=== PATIENT | male | born 1965 ===

== ENCOUNTER 2017-11-10 13:40 | Inpatient (IN) | payer MEDICAID ==
[2017-11-10 13:47] VITALS: O2SAT 99
[2017-11-10 14:54] LABS: BASO % 0.6 % (0.0-2.0); EOS # 0.1 K/uL (0.0-0.7); EOS % 1.4 % (0.0-4.0); HEMATOCRIT 47.2 % (35.0-51.0); LYMPH # 1.3 K/uL (1.0-4.3); LYMPH % 16.5 % (20.0-40.0); MEAN CELL VOLUME 87.4 fl (80.0-94.0); MEAN CORPUSCULAR HEMOGLOBIN 29.3 pg (27.0-31.0); MEAN CORPUSCULAR HGB CONC 33.5 g/dL (33.0-37.0); MEAN PLATELET VOLUME 8.3 fl (7.2-11.7); MONO # 0.4 K/uL (0.0-0.8); MONO % 5.3 % (0.0-10.0); NEUT # 5.8 K/uL (1.8-7.0); NEUT % 76.2 % (50.0-75.0); NRBC % 0.2 % (0.0-0.0); RED CELL DISTRIBUTION WIDTH 13.9 % (11.5-14.5); WHITE BLOOD COUNT 7.6 K/uL (4.8-10.8)
[2017-11-10 15:08] LABS: RBC URINE 12 /hpf (0-3); URINE BACTERIA FEW (<OCC); URINE BILIRUBIN NEGATIVE (NEGATIVE); URINE BLOOD SMALL (NEGATIVE); URINE COLOR YELLOW (YELLOW); URINE GLUCOSE (UA) NEG (Normal); URINE KETONE NEGATIVE (NEGATIVE); URINE LEUKOCYTE ESTERASE NEG Leu/uL (Negative); URINE PROTEIN NEGATIVE (NEGATIVE); URINE UROBILINOGEN 0.2-1.0 mg/dL (0.2-1.0); WBC URINE 1 /hpf (0-5)
[2017-11-10 15:12] LABS: ALB/GLOB RATIO 1.3 (1.0-2.1); ALCOHOL SERUM < 10 mg/dl (0-10); ALKALINE PHOSPHATASE 75 U/L (38-126); ALT/SGPT 44 U/L (21-72); AST/SGOT 34 U/L (17-59); BILIRUBIN,TOTAL 0.7 mg/dl (0.2-1.3); BLOOD UREA NITROGEN 9 mg/dl (9-20); CALCIUM 9.1 mg/dL (8.4-10.2); CARBON DIOXIDE 20 mmol/L (22-30); CHLORIDE 106 mmol/L (98-107); GFR AFRICAN-AMERICAN > 60; GLUCOSE,RANDOM 142 mg/dL (75-110); POTASSIUM 4.1 MMOL/L (3.6-5.0); SODIUM 138 mmol/l (132-148); TOTAL PROTEIN 7.7 G/DL (6.3-8.2)
--- NOTE | 2017-11-10 15:19 | CT ---
PROCEDURE: CT HEAD WITHOUT CONTRAST. HISTORY: Medical clearance COMPARISON: None available. TECHNIQUE: Axial computed tomography images were obtained through the head/brain without intravenous contrast. Radiation dose: Total exam DLP = 828.08 mGy-cm. This CT exam was performed using one or more of the following dose reduction techniques: Automated exposure control, adjustment of the mA and/or kV according to patient size, and/or use of iterative reconstruction technique. FINDINGS: HEMORRHAGE: No acute parenchymal, subarachnoid nor extra-axial hemorrhage. BRAIN: There may be some minimal chronic periventricular white matter ischemic changes. . . No obvious parenchymal nor extra-axial mass or collection identified on this noncontrast study. Mild generalized volume loss. VENTRICLES: Unremarkable. No hydrocephalus. CALVARIUM: Unremarkable. PARANASAL SINUSES: Unremarkable as visualized. No significant inflammatory changes. MASTOID AIR CELLS: Unremarkable as visualized. No inflammatory changes. OTHER FINDINGS: None. IMPRESSION: No acute intracranial hemorrhage.
--- NOTE | 2017-11-10 15:35 | ED PDOC ---
HPI: Psych/Substance Abuse Time Seen by Provider: 11/10/17 14:00 Chief Complaint (Nursing): Psychiatric Evaluation Chief Complaint (Provider): Psychiatric evaluation ED Caveat: Altered Mental Status History Per: Patient History/Exam Limitations: clinical condition Onset/Duration Of Symptoms: Days (x1) Current Symptoms Are (Timing): Still Present Suicide/Self Injury Attempted (Context): Cut Wrists Associated Symptoms: Suicidal Thoughts, Other (hearing voices) Additional Complaint(s): Blue Chatterjee is a 52 year old male, with no past medical history, who was brought to the emergency department by EMS after patient was found attempting to cut his wrists today. Patient reports hiding in his apartment for x2 months because people were going to kidnap and kill him. Patient admits to hearing voices and suicidal ideation. He denies homicidal ideation. No further medical complaints. PMD: None provided. Past Medical History Reviewed: Historical Data, Nursing Documentation, Vital Signs Vital Signs: Last Vital Signs Temp 98 F 11/10/17 13:45 Pulse 121 H 11/10/17 13:45 Resp 18 11/10/17 13:45 BP 150/104 H 11/10/17 13:45 Pulse Ox 99 11/10/17 13:45 - Medical History PMH: Comment Only: Chronic Kidney Disease (Denies) - Family History Family History: States: Unknown Family Hx - Social History Current smoker - smoking cessation education provided: No Alcohol: None (denies) Drugs: Denies - Allergies Allergies/Adverse Reactions: Allergies Allergy/AdvReac Type Severity Reaction Status Date / Time No Known Allergies Allergy Verified 11/10/17 13:44 Review of Systems ROS Statement: Except As Marked, All Systems Reviewed And Found Negative Psych: Positive for: Psychosis (hearing voices), Suicidal ideation. Negative for: Other (homicidal ideation) Physical Exam - Reviewed Nursing Documentation Reviewed: Yes Vital Signs Reviewed: Yes - Physical Exam Appears: Positive for: Non-toxic Head Exam: Positive for: ATRAUMATIC, NORMAL INSPECTION, NORMOCEPHALIC Skin: Positive for: Normal Color, Warm, Dry Eye Exam: Positive for: EOMI, Normal appearance, PERRL Neck: Positive for: Normal, Painless ROM, Supple Cardiovascular/Chest: Positive for: Regular Rate, Rhythm. Negative for: Murmur Respiratory: Positive for: Normal Breath Sounds. Negative for: Respiratory Distress Extremity: Positive for: Normal ROM. Negative for: Deformity, Swelling Neurologic/Psych: Positive for: Alert, Oriented (x0). Negative for: manager study II-XII (no focal deficits), Motor/Sensory Deficits - Laboratory Results Result Diagrams: 11/10/17 14:50 11/10/17 14:50 - ECG Interpretation Of ECG: NSR @ 64, no ST-T changes. O2 Sat by Pulse Oximetry: 99 (RA) Pulse Ox Interpretation: Normal Medical Decision Making Medical Decision Making: Initial impression: psychiatric evaluation Initial Plan: --CT head w/o contrast [CT] --EKG --Acetaminophen --Alcohol serum --Comp Metabolic Panel --Drug screen, urine --Salicylate --Urine dipstick --CBC w/ differential --Chest portable [RAD] --Cipro 250 mg PO --1:1 Obs for suicide precaution --Glucose, Blood, POC --Urinalysis --reevaluation 15:[address] FINDINGS: HEMORRHAGE: No acute parenchymal, subarachnoid nor extra-axial hemorrhage. BRAIN: There may be some minimal chronic periventricular white matter ischemic changes. . . No obvious parenchymal nor extra-axial mass or collection identified on this noncontrast study. Mild generalized volume loss. VENTRICLES: Unremarkable. No hydrocephalus. CALVARIUM: Unremarkable. PARANASAL SINUSES: Unremarkable as visualized. No significant inflammatory changes. MASTOID AIR CELLS: Unremarkable as visualized. No inflammatory changes. OTHER FINDINGS: None. IMPRESSION: No acute intracranial hemorrhage. 16:33 CXR FINDINGS: LUNGS: Poor inspiration with low lung volumes, mild crowded bronchovascular markings and mild bibasilar atelectasis. . PLEURA: No significant pleural effusion identified, no pneumothorax apparent. CARDIOVASCULAR: Normal. OSSEOUS STRUCTURES: No significant abnormalities. VISUALIZED UPPER ABDOMEN: Normal. OTHER FINDINGS: None. IMPRESSION: Poor inspiration with low lung volumes, mild crowded bronchovascular markings and mild bibasilar atelectasis. . Scribe Attestation: Documented by Jack Ulloa, acting as a scribe for Clau Amaya MD Provider Scribe Attestation: All medical record entries made by the Scribe were at my direction and personally dictated by me. I have reviewed the chart and agree that the record accurately reflects my personal performance of the history, physical exam, medical decision making, and the department course for this patient. I have also personally directed, reviewed, and agree with the discharge instructions and disposition. Disposition - Clinical Impression Clinical Impression: UTI (urinary tract infection), Depression - Disposition Disposition: Transfer of Care Disposition Time: 17:00 Condition: STABLE Patient Signed Over To: Romel Barnes
--- NOTE | 2017-11-10 16:35 | RAD ---
HISTORY: Medical clearance COMPARISON: OpenNo prior. FINDINGS: LUNGS: Poor inspiration with low lung volumes, mild crowded bronchovascular markings and mild bibasilar atelectasis. . PLEURA: No significant pleural effusion identified, no pneumothorax apparent. CARDIOVASCULAR: Normal. OSSEOUS STRUCTURES: No significant abnormalities. VISUALIZED UPPER ABDOMEN: Normal. OTHER FINDINGS: None. IMPRESSION: Poor inspiration with low lung volumes, mild crowded bronchovascular markings and mild bibasilar atelectasis. .
--- NOTE | 2017-11-10 17:08 | ED PDOC ---
- Laboratory Results Result Diagrams: 11/10/17 14:50 11/10/17 14:50 - ECG O2 Sat by Pulse Oximetry: 99 (RA) Medical Decision Making Medical Decision Making: Time: 17:00 --Patient was transferred to my care, endorsed by Dr. Amaya, pending crisis evaluation. Vital signs are stable. Labs reviewed. In my opinion there are no current acute medical conditions that contraindicate the placement of this patient in a psychiatric unit. Scribe Attestation: Documented by Philly Grayson, acting as a scribe for Romel Barnes MD Provider Scribe Attestation: All medical record entries made by the Scribe were at my direction and personally dictated by me. I have reviewed the chart and agree that the record accurately reflects my personal performance of the history, physical exam, medical decision making, and the department course for this patient. I have also personally directed, reviewed, and agree with the discharge instructions and disposition. Disposition Counseled Patient/Family Regarding: Studies Performed, Diagnosis - Clinical Impression Clinical Impression: UTI (urinary tract infection), Depression - POA Present On Arrival: None - Disposition Disposition: Admitted as In-Patient Disposition Time: 18:34 Condition: FAIR
--- NOTE | 2017-11-10 17:50 | CARD ---
APPROVED REPORT EKG Measurement Heart [id number] <Conclusion> Normal sinus rhythm Minimal voltage criteria for LVH, may be normal variant Nonspecific T wave abnormality Abnormal ECG
[2017-11-10] MEDS ORDERED: DiphenhydrAMINE 50 mg/ml Inj IM PRN (23:18)
[2017-11-10] MEDS ORDERED: Magnesium Hydroxide Susp 30 ml UD PO PRN (23:18)
[2017-11-10] MEDS ORDERED: Alum-Mag Hydrox-Simethicone Susp (30 mL) PO PRN (23:18)
--- NOTE | 2017-11-11 01:57 | PCM.BM ---
Addendum entered and electronically signed by Sue Cabezas MSW 11/19/17 11: 06: Treatment Plan Review - Problem Delusions Date Initiated: 11/19/17 Time Initiated: :56 Date resolved: 11/19/17 Altered Sleep Patterns Date Initiated: 11/10/17 Time Initiated: 01:56 Date resolved: 11/19/17 Social Isolation Date Initiated: 11/10/17 Time Initiated: 01:57 Date resolved: 11/14/17 - Discharge / Continuing Care Discharge to:: [facility]: Partial hospital (patient refused despite staff recommendations ), Outpatient therapy Health Needs: Other (Patient attended [facility] this morning to discuss progress and anticipated discharge. Patient presents as less internally preoccupied and paranoid than upon admission. Patient reports significant improvement in auditory hallucinations since admission. Patient able to tolerant longer periods of social interaction and is better able to engage in discussions regarding tx. Patient reported having stable housing upon admission but not feeling comfortable returning secondary to feeling as though a gang is after him. Patient now reports being homeless and is requesting to be transferred to a correction psychiatric facility. Warehouse Picker reiterated that patients cannot be transferred to a long-term facility from [facility]. Patient not appropriate for screening at this time. Patient encouraged patient to report threats in the community to local police. Patient became increasingly irritable towards staff once notified that transfer/alternate housing was not possible. Warehouse Picker emphasized importance of compliance with appropriate level of care to ensure maximum functioning/safety in the community and reduce risk of future hospitalizations. Patient continues to refuse recommended level of aftercare ( php). Patient agreeable but ambivalent regarding outpatient mental health services. ) Original Note: <Mery Grimm - Last Filed: 11/11/17 01:55> Treatment Plan Problems - Problems identified on initial assessmt Delusions Date Initiated: 11/11/17 Time Initiated: 01:56 Assessment reference: NA Status: Active Altered Sleep Patterns Date Initiated: 11/11/17 Time Initiated: 01:56 Assessment reference: NA Status: Active Social Isolation Date Initiated: 11/11/17 Time Initiated: 01:57 Assessment reference: NA Status: Active Treatment assets and liabiliti Patient Assests: cooperative, self-reliant, ADL independent, physically healthy , negotiates basic needs Patient Liabilities: live alone, poor support system, language/speech - Milieu Protocol Maintain good personal hygiene: daily Encourage regular showers, every shift Remind patient to perform daily oral care Conduct patient checks and document Observation sheet: Q15 minutes Maintain personal safety: every shift Educate patient to report safety concerns to staff, every shift Monitor environment for contraband/sharps Medication safety: Monitor for expected outcome, potential side effects: every shift, Assess barriers to learning: every shift, Assess readiness for medication education: every shift <Sue Cabezas - Last Filed: 11/19/17 11:05> Treatment assets and liabiliti Patient Assests: adapts well, cooperative, motivated, self-reliant, ADL independent, physically healthy, negotiates basic needs, cognitively intact Patient Liabilities: live alone Family Contact Family involvement: Family/SO is involved Family contact: Patient agrees to contact, Family has been contacted by patient , Telephone contact initiated by staff Family contact name: Fidelia(friend) ([phone]) Family contacted how many times per week?: 2 Family contact comment: Patient was able to provide keno writer with consent to contact friend who referred patient to [facility] ED. Warehouse Picker to place call to collect futher collateral. - Goals for Treatment Patient goals for treatment: Patient to continue stabilization on 3NP through medication management and group/supportive therapy. Patient to be encouraged to attend groups regularly to promote self-awareness, reality testing, and improve insight, coping skills and self-esteem. Patient to be provided with referral for appropriate level of aftercare to reduce risk of future hospitalizations and ensure safety in the community. Discharge/Continuing Care - Education Needs Education Needs: Patient Medication, Patient Coping Skills, Patient Community resources, Patient Aftercare Safety Plan - Discharge Discharge Criteria: Tolerates medication w/o severe side effects, Free of Suicidal thoughts, Free of paranoid thoughts, Free of agitation, Normal sleep pattern, Ability to care for self, Reduction of target symptoms Discharge to:: Home - Treatment Team Participation Patient/Family/SO Statement: 11/12/17 11:46 Patient distressed by auditory hallucinations and expressed difficulties providing collateral. Patient reports feeling uneasy being out of his room and around other people due to acute symptoms. Patient was met with in bedroom. Patient continues to report AH/VH, depression and poor sleep. Patient remains guarded and paranoid. Patient reports vague SI is able to contract for safety on 3NP. Patient encouraged to leave room and participate in unit milieu once AH subside in order to improve sleep hygiene, depression and paranoia. Patient remains motivated for tx. Discussed with Family/SO: No Was Patient/Family/SO present at Treatment Team Meeting: Yes <Maura Abraham - Last Filed: 11/19/17 11:19> - Diagnosis (1) Major depression with psychotic features Status: Acute Interventions: 11/13/17 10:42 psychotherapy, pharmacotherapy
[2017-11-11 07:32] LABS: T4 10.9 ug/dl (5.5-11.0)
[2017-11-11 07:46] LABS: THYROID STIMULATING HORMONE 1.68 mIU/ML (0.46-4.68)
[2017-11-11] MEDS ORDERED: Pneumococcal 23-Valent Vaccine IM ONE (10:00)
[2017-11-11] MEDS ORDERED: Influenza Vaccine 18yr & older 0.5 ML/45 MCG SYR IM ONE (10:15)
--- NOTE | 2017-11-11 10:54 | CP.PCM.CON ---
<Jhony Wick - Last Filed: 11/11/17 10:49> History of Present Illness - History of Present Illness History of Present Illness: 52 year old male with no PMHx seen at bedside in Psych after attempting to commit suicide yesterday. Patient states that for roughly two months he has been hiding in his apartment because he believes that men are outside of it trying to kill him. He states that he continues to have suicidal ideations but denies homicidal ideations. He also states that he has been hearing voices recently but denies any past diagnosis of schizophrenia. Patient says that he feels very "down and depressed". He also states that he is constipated and has not had a bowel movement in roughly four days. He denies any tobacco, alcohol or drug use. He denies any other physical complaints at this time. Denies at home medication. Denies N/V/F/C/CP/SOB/calf pain. Review of Systems - Review of Systems Review of Systems: ROS unremarkable outside of HPI Past Patient History - Past Social History Alcohol: None (denies) Drugs: Denies - CARDIAC Hx Cardiac Disorders: No (Denies) Hx Hypertension: No - PULMONARY Hx Respiratory Disorders: No Hx Tuberculosis: No - NEUROLOGICAL Hx Neurological Disorder: No HX Cerebrovascular Accident: No Hx Seizures: No - HEENT Hx HEENT Problems: No (Denies) - RENAL Hx Chronic Kidney Disease: No (Denies) - ENDOCRINE/METABOLIC Hx Endocrine Disorders: No (Denies) - HEMATOLOGICAL/ONCOLOGICAL Hx Blood Disorders: No Hx Cancer: No Hx Human Immunodeficiency Virus (HIV): No - INTEGUMENTARY Hx Dermatological Problems: No (Denies) - MUSCULOSKELETAL/RHEUMATOLOGICAL Hx Musculoskeletal Disorders: No (Denies) - GASTROINTESTINAL Hx Gastrointestinal Disorders: No (Denies) - GENITOURINARY/GYNECOLOGICAL Hx Genitourinary Disorders: No Hx Sexually Transmitted Disorders: No - PSYCHIATRIC Hx Substance Use: No - SURGICAL HISTORY Hx Appendectomy: Yes (1985) - ANESTHESIA Hx Anesthesia: Yes Hx Anesthesia Reactions: No Meds Allergies/Adverse Reactions: Allergies Allergy/AdvReac Type Severity Reaction Status Date / Time No Known Allergies Allergy Verified 11/10/17 13:44 - Medications Medications: Current Medications Acetaminophen (Tylenol 325mg Tab) 650 mg PO Q4 PRN PRN Reason: Pain, moderate (4-7) Al Hydrox/Mg Hydrox/Simethicone (Maalox Plus 30 Ml) 30 ml PO Q4 PRN PRN Reason: Dyspepsia Diphenhydramine HCl (Benadryl) 50 mg IM Q6 PRN PRN Reason: Extrapyramidal S/S Unable PO Diphenhydramine HCl (Benadryl) 50 mg PO Q6 PRN PRN Reason: Extrapyramidal Symptoms Last Admin: 11/10/17 23:32 Dose: 50 mg Diphenhydramine HCl (Benadryl) 50 mg PO HS PRN PRN Reason: Sleep Haloperidol (Haldol) 5 mg PO Q4 PRN PRN Reason: Agitation Last Admin: 11/10/17 23:32 Dose: 5 mg Haloperidol Lactate (Haldol) 5 mg IM Q4 PRN PRN Reason: Agitation, Unable to Take PO Lorazepam (Ativan) 2 mg IM Q4 PRN PRN Reason: Anxiety/Agitation,Unable PO Lorazepam (Ativan) 2 mg PO Q4 PRN PRN Reason: Anxiety/Agitation Magnesium Hydroxide (Milk Of Magnesia) 30 ml PO HS PRN PRN Reason: Constipation Physical Exam - Constitutional Appears: Non-toxic, No Acute Distress - Head Exam Head Exam: ATRAUMATIC, NORMOCEPHALIC - Eye Exam Eye Exam: EOMI, PERRL Pupil Exam: PERRL - ENT Exam ENT Exam: Mucous Membranes Moist - Neck Exam Neck exam: Positive for: Normal Inspection. Negative for: Tenderness - Respiratory Exam Respiratory Exam: Clear to Auscultation Bilateral, NORMAL BREATHING PATTERN - Cardiovascular Exam Cardiovascular Exam: REGULAR RHYTHM - GI/Abdominal Exam GI & Abdominal Exam: Soft. absent: Distended, Firm, Guarding - Rectal Exam Rectal Exam: Deferred - Extremities Exam Extremities exam: Positive for: normal inspection - Neurological Exam Neurological exam: Alert, Oriented x3 - Psychiatric Exam Psychiatric exam: Depressed, Suicidal Ideation - Skin Skin Exam: Intact, Normal Color, Warm Results - Vital Signs Recent Vital Signs: Last Vital Signs Temp 96.9 F L 11/11/17 09:28 Pulse 79 11/11/17 09:28 Resp 18 11/11/17 09:28 BP 134/82 11/11/17 09:28 Pulse Ox 99 11/10/17 20:15 - Labs Result Diagrams: 11/10/17 14:50 11/10/17 14:50 Labs: Laboratory Results - last 24 hr 11/10/17 11/10/17 11/10/17 14:38 14:50 14:50 WBC 7.6 RBC 5.40 Hgb 15.8 Hct 47.2 MCV 87.4 MCH 29.3 MCHC 33.5 RDW 13.9 Plt Count 197 MPV 8.3 Neut % (Auto) 76.2 H Lymph % (Auto) 16.5 L Russell % (Auto) 5.3 Eos % (Auto) 1.4 Baso % (Auto) 0.6 Neut # 5.8 Lymph # 1.3 Russell # 0.4 Eos # 0.1 Baso # 0.0 Sodium 138 Potassium 4.1 Chloride 106 Carbon Dioxide 20 L Anion Gap 16 BUN 9 Creatinine 0.9 Est GFR ( Amer) > 60 Est GFR (Non-Af Amer) > 60 POC Glucose (mg/dL) 133 H Random Glucose 142 H Calcium 9.1 Total Bilirubin 0.7 AST 34 ALT 44 Alkaline Phosphatase 75 Total Protein 7.7 Albumin 4.3 Globulin 3.3 Albumin/Globulin Ratio 1.3 Triglycerides Cholesterol LDL Cholesterol Direct HDL Cholesterol Thyroxine (T4) TSH 3rd Generation Urine Color Urine Clarity Urine pH Ur Specific Hugo Urine Protein Urine Glucose (UA) Urine Ketones Urine Blood Urine Nitrate Urine Bilirubin Urine Urobilinogen Ur Leukocyte Esterase Urine RBC (Auto) Urine Microscopic WBC Ur Squamous Epith Cells Urine Bacteria Salicylates Urine Opiates Screen Urine Methadone Screen Acetaminophen Ur Barbiturates Screen Ur Phencyclidine Scrn Ur Amphetamines Screen U Benzodiazepines Scrn U Oth Cocaine Metabols U Cannabinoids Screen Alcohol, Quantitative < 10 11/10/17 11/10/17 11/10/17 14:50 14:55 14:55 WBC RBC Hgb Hct MCV MCH MCHC RDW Plt Count MPV Neut % (Auto) Lymph % (Auto) Russell % (Auto) Eos % (Auto) Baso % (Auto) Neut # Lymph # Russell # Eos # Baso # Sodium Potassium Chloride Carbon Dioxide Anion Gap BUN Creatinine Est GFR ( Amer) Est GFR (Non-Af Amer) POC Glucose (mg/dL) Random Glucose Calcium Total Bilirubin AST ALT Alkaline Phosphatase Total Protein Albumin Globulin Albumin/Globulin Ratio Triglycerides Cholesterol LDL Cholesterol Direct HDL Cholesterol Thyroxine (T4) TSH 3rd Generation Urine Color Yellow Urine Clarity Slighty-cloudy Urine pH 7.0 Ur Specific Hugo 1.020 Urine Protein Negative Urine Glucose (UA) Neg Urine Ketones Negative Urine Blood Small Urine Nitrate Negative Urine Bilirubin Negative Urine Urobilinogen 0.2-1.0 Ur Leukocyte Esterase Neg Urine RBC (Auto) 12 H Urine Microscopic WBC 1 Ur Squamous Epith Cells < 1 Urine Bacteria Few H Salicylates < 1.0 Urine Opiates Screen Negative Urine Methadone Screen Negative Acetaminophen < 10.0 L Ur Barbiturates Screen Negative Ur Phencyclidine Scrn Negative Ur Amphetamines Screen Negative U Benzodiazepines Scrn Negative U Oth Cocaine Metabols Negative U Cannabinoids Screen Negative Alcohol, Quantitative 11/11/17 05:45 WBC RBC Hgb Hct MCV MCH MCHC RDW Plt Count MPV Neut % (Auto) Lymph % (Auto) Russell % (Auto) Eos % (Auto) Baso % (Auto) Neut # Lymph # Russell # Eos # Baso # Sodium Potassium Chloride Carbon Dioxide Anion Gap BUN Creatinine Est GFR ( Amer) Est GFR (Non-Af Amer) POC Glucose (mg/dL) Random Glucose Calcium Total Bilirubin AST ALT Alkaline Phosphatase Total Protein Albumin Globulin Albumin/Globulin Ratio Triglycerides 200 H D Cholesterol 129 LDL Cholesterol Direct 75 HDL Cholesterol 18 L Thyroxine (T4) 10.9 TSH 3rd Generation 1.68 Urine Color Urine Clarity Urine pH Ur Specific Hugo Urine Protein Urine Glucose (UA) Urine Ketones Urine Blood Urine Nitrate Urine Bilirubin Urine Urobilinogen Ur Leukocyte Esterase Urine RBC (Auto) Urine Microscopic WBC Ur Squamous Epith Cells Urine Bacteria Salicylates Urine Opiates Screen Urine Methadone Screen Acetaminophen Ur Barbiturates Screen Ur Phencyclidine Scrn Ur Amphetamines Screen U Benzodiazepines Scrn U Oth Cocaine Metabols U Cannabinoids Screen Alcohol, Quantitative Assessment & Plan - Assessment and Plan (Free Text) Assessment: 52 year old male seen in Psych unit for depression and attempted suicide Plan: 1. Depression - Continue treatment per Psych - Continue meds; Ativan, Haldol 2. UTI - Asymptomatic; absent leukocytosis, afebrile - STAT does of cipro given in ED - Continue to monitor for symptoms 3. Constipation - Continue MOM - Monitor for BM 4. Hyperglycemia - Continue to monitor - F/u HgA1c - Regular diet 5. Hypercholesterolemia <KociernestinaOrjeta - Last Filed: 11/11/17 16:47> Meds - Medications Medications: Current Medications Acetaminophen (Tylenol 325mg Tab) 650 mg PO Q4 PRN PRN Reason: Pain, moderate (4-7) Al Hydrox/Mg Hydrox/Simethicone (Maalox Plus 30 Ml) 30 ml PO Q4 PRN PRN Reason: Dyspepsia Benztropine Mesylate (Cogentin) 0.5 mg PO BID BENJAMIN Diphenhydramine HCl (Benadryl) 50 mg IM Q6 PRN PRN Reason: Extrapyramidal S/S Unable PO Diphenhydramine HCl (Benadryl) 50 mg PO Q6 PRN PRN Reason: Extrapyramidal Symptoms Last Admin: 11/11/17 11:29 Dose: 50 mg Diphenhydramine HCl (Benadryl) 50 mg PO HS PRN PRN Reason: Sleep Haloperidol (Haldol) 5 mg PO Q4 PRN PRN Reason: Agitation Last Admin: 11/11/17 11:29 Dose: 5 mg Haloperidol Lactate (Haldol) 5 mg IM Q4 PRN PRN Reason: Agitation, Unable to Take PO Lactulose (Enulose) 20 gm PO DAILY PRN PRN Reason: Constipation Lorazepam (Ativan) 2 mg IM Q4 PRN PRN Reason: Anxiety/Agitation,Unable PO Lorazepam (Ativan) 2 mg PO Q4 PRN PRN Reason: Anxiety/Agitation Last Admin: 11/11/17 11:29 Dose: 2 mg Magnesium Hydroxide (Milk Of Magnesia) 30 ml PO HS PRN PRN Reason: Constipation Mirtazapine (Remeron) 7.5 mg PO HS [facility] Nicotine (Nicoderm Cq) 1 patch TD DAILY [facility] Risperidone (Risperdal Tab) 1 mg PO BID [facility] Results - Vital Signs Recent Vital Signs: Last Vital Signs Temp 96.9 F L 11/11/17 09:28 Pulse 79 11/11/17 09:28 Resp 18 11/11/17 09:28 BP 134/82 11/11/17 09:28 Pulse Ox 99 11/10/17 20:15 - Labs Result Diagrams: 11/10/17 14:50 11/10/17 14:50 Labs: Laboratory Results - last 24 hr 11/10/17 11/11/17 11/11/17 14:38 05:45 05:45 POC Glucose (mg/dL) 133 H Hemoglobin A1c 5.8 Triglycerides 200 H D Cholesterol 129 LDL Cholesterol Direct 75 HDL Cholesterol 18 L Thyroxine (T4) 10.9 TSH 3rd Generation 1.68 Attending/Attestation - Attestation I have personally seen and examined this patient.: Yes I have fully participated in the care of the patient.: Yes I have reviewed all pertinent clinical information: Yes Notes (Text): 11/11/17 16:45 Patient seen and examined bedside. All chart and clinical data reviewed. Case discussed with resident. Agree with assessment and plan. Tobacco use disorder - Start nicotine patch
--- NOTE | 2017-11-11 13:46 | PCM.PSYCH ---
Initial Psychiatric Evaluation - Initial Psychiatric Evaluation Type of Admission: Voluntary Chief Complaint (in patient's own words): I am tortured by the voices Patient's Reaction to Hospitalization: pt requested help History of Present Illness and Precipitating Events: zach is a 52 year old,, Single male who was brought by EMS and Police secondary to sending text messages to his friend stating that he has been hiding in his room for the past 3 months because the (most dangerous gang in [facility]) is "out to get him" since he was "hanging out" with a friend that was making some business transactions where money was involved, and that particular friend did not pay the gang back, thus resulting in his being "threatened" by the gang with the resolution to "kill him" and pt was witnessed to that negative interaction. As per pt's report, he "fears for his life" and he does not want to be found by this gang. Pt however on evaluation denied having any present involvement with the law. 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 , has been isolating himself in his room for three months reported low energy, lack of interest in life [ poor sleep , , reported auditory hallucination, persistant making him very anxious ,however denied command hallucinations, reported having suicidal ideations but no plan on the unit denied homicidal ideations, denied manic symptoms, denied substance abuse Current Medications: Active Medications Generic Name Dose Route Start Last Admin Trade Name Freq PRN Reason Stop Dose Admin Acetaminophen 650 mg 11/10/17 23:18 Tylenol 325mg Tab PO Q4 PRN Pain, moderate (4-7) Al Hydrox/Mg Hydrox/Simethicone 30 ml 11/10/17 23:18 Maalox Plus 30 Ml PO Q4 PRN Dyspepsia Benztropine Mesylate 0.5 mg 11/11/17 17:00 Cogentin PO BID BENJAMIN Diphenhydramine HCl 50 mg 11/10/17 23:18 Benadryl IM Q6 PRN Extrapyramidal S/S Unable PO Diphenhydramine HCl 50 mg 11/10/17 23:18 11/11/17 11:29 Benadryl PO 50 mg Q6 PRN Administration Extrapyramidal Symptoms Diphenhydramine HCl 50 mg 11/10/17 23:22 Benadryl PO HS PRN Sleep Haloperidol 5 mg 11/10/17 23:18 11/11/17 11:29 Haldol PO 5 mg Q4 PRN Administration Agitation Haloperidol Lactate 5 mg 11/10/17 23:18 Haldol IM Q4 PRN Agitation, Unable to Take PO Lactulose 20 gm 11/11/17 11:46 Enulose PO DAILY PRN Constipation Lorazepam 2 mg 11/10/17 23:18 Ativan IM Q4 PRN Anxiety/Agitation,Unable PO Lorazepam 2 mg 11/10/17 23:18 11/11/17 11:29 Ativan PO 2 mg Q4 PRN Administration Anxiety/Agitation Magnesium Hydroxide 30 ml 11/10/17 23:18 Milk Of Magnesia PO HS PRN Constipation Mirtazapine 7.5 mg 11/11/17 22:00 Remeron PO HS BENJAMIN Risperidone 1 mg 11/11/17 17:00 Risperdal Tab PO BID BENJAMIN Past Psychiatric History - Past Psychiatric History Previous Treatment History: Inpatient Explanation of prior treatment: one hospitalization for depression prior to [facility] in [facility] was placed on benzodiazepine History of Abuse: non reported History of Family Illness: history of alcohol abuse in the past currently abstinent Pertinent Medical Hx (Current Medical&Sleep Prob, Allergies): Allergies Allergy/AdvReac Type Severity Reaction Status Date / Time No Known Allergies Allergy Verified 11/10/17 13:44 Mental Status Examination - Personal Presentation Personal Presentation: Looks older than stated age Additional comments: pt unkempt, distressed, dysphoric - Affect Affect: Depressed - Motor Activity Motor Activity: Psychomotor Retardation - Reliability in Providing Information Reliability in Providing Information: Poor, due to alteration in thoughts, Poor , due to altered mood - Speech Additional comments: underproductive - Formal Thought Process Formal Thought Process: Hallucinations, Delusions, Paranoia, Circumstantial Additional comments: paranoid delusions and non command auditory hallucinations - Hallucinations/Delusions Hallucinations: Auditory - Obsessions/Compulsions Obsessions: No Compulsions: No - Cognitive Functions Orientation: Person, Place Sensorium: Alert Abstract Thinking: [place] Estimate of Intelligence: Average Memory: Recent intact, as evidence by: Ability to recall events of the day - Risk Risk: Suicidal, Diminished functioning - Strength & Assets Inventory Strength & Assets Inventory: Employment history - Limitations Additional comments: poor social support DSM 5 DX - DSM 5 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
--- NOTE | 2017-11-12 14:00 | PCM.PYCHPN ---
Psychiatric Progress Note - Psychiatric Progress Note Patient seen today, length of contact: PT EVALUATED DISCUSSED WITH TEAM CHART REVIEWED Patient Chief Complaint: I STILL HEAR THE VOICES, IT IS LESS BUT i HEAR THEM Problems Identified/Issues Discussed: PT CONTINUES TO BE DEPRESSED ANHEDONIC, UNKEMPT IN BED ISOLATIVE, REFUSING TO ATTEMPT GROUPS, CONTINUES TO REPORT DECREASED SLEEP AND DECREASED APPETITE, CONTINUES TO BE DISTRESSED DUE TO THE AUDITORY HALLUCINATIONS OF VOICES PUTTING HIM DOWN AND SCOLDING HIM, PT CONTINUES TO BE PARANOID AND GUARDED DENIED COMMAND HALLUCINATIONS, DENIED ANY CURRENT S/HI DSM 5 Symptoms Update: MAJOR DEPRESSION RECURRENT SEVERE WITH PSYCHOTIC FEATURES Medication Change: Yes Medical Record Reviewed: Yes (INCREASE REMERON AND RISPERIDONE) Mental Status Examination - Cognitive Function Orientation: Person, Place Attention: Poor Concentration: Poor Association: Loose Fund of Knowledge: Poor Decription of patient's judgement and insights: FAIR INSIGHT , POOR JUDGEMENT - Mood Mood: Depressed, Anxious - Affect Affect: Constricted, Depressed - Speech Speech: Soft - Formal Thought Process Formal Thought Process: Hallucinations, Delusions, Paranoia, Circumstantial Psychotic Thoughts and Behaviors: PT PRESENTING WITH PARANOID DELUSIONS, DELUSIONS OF PERSECUTION AND NON COMMAND AUDITORY HALLUCINATIONS - Suicidal Ideation Suicidal Ideation: No - Homicidal Ideation Homicidal Ideation: No Goal/Treatment Plan - Goal/Treatment Plan Need for Continued Stay: Severe depression anxiety, Discharge may exacerbated symptoms Progress Toward Problem(s) and Goals/Treatment Plan: INCREASE risoperidone TO 2mg bid and conentin 0.5 mg bid increase remeron to 15mg qhs with plan to uptitrate medical consult for constipation group and supportive therapy Estimated Date of D/C: 11/19/17
[2017-11-12] MEDS: Risperidone M TAB 2 MG PO SCH (17:35)
[2017-11-13] MEDS: Risperidone M TAB 2 MG PO SCH ×2 (10:35→17:54)
--- NOTE | 2017-11-13 11:55 | PCM.PYCHPN ---
Psychiatric Progress Note - Psychiatric Progress Note Patient seen today, length of contact: PT EVALUATED DISCUSSED WITH TEAM CHART REVIEWED Patient Chief Complaint: I am a little better Problems Identified/Issues Discussed: PT ON evaluation continues to be unkempt anhedonic, low energy, isolative in his room and paranoid , guardeed, pt however indicated that the auditory hallucinations are less intense and denied any command hallucinations. no reported side effects of medications denied any current suicidal or homicida ideations Medical Problems: one hospitalization for depression prior to [facility] in [facility] was placed on benzodiazepine DSM 5 Symptoms Update: major depression recurrent severe with psychotic features Medication Change: Yes (increase remeron) Medical Record Reviewed: Yes Mental Status Examination - Cognitive Function Orientation: Person, Place Attention: WNL Concentration: Poor Association: WNL Fund of Knowledge: Poor Decription of patient's judgement and insights: FAIR INSIGHT , POOR JUDGEMENT - Mood Mood: Depressed, Anxious - Affect Affect: Constricted, Depressed - Speech Speech: Soft - Formal Thought Process Formal Thought Process: Hallucinations, Delusions, Paranoia, Circumstantial Psychotic Thoughts and Behaviors: PT PRESENTING WITH PARANOID DELUSIONS, DELUSIONS OF PERSECUTION AND NON COMMAND AUDITORY HALLUCINATIONS - Suicidal Ideation Suicidal Ideation: No - Homicidal Ideation Homicidal Ideation: No Goal/Treatment Plan - Goal/Treatment Plan Need for Continued Stay: Severe depression anxiety, Discharge may exacerbated symptoms Progress Toward Problem(s) and Goals/Treatment Plan: continue with risperidone 2mg bid and cogentin 0.5 mg bid increase remeron to 15mg qhs with plan to uptitrate group and supportive therapy Estimated Date of D/C: 11/19/17
[2017-11-14] MEDS: Risperidone M TAB 2 MG PO SCH ×2 (09:38→18:18)
--- NOTE | 2017-11-14 12:15 | PCM.PYCHPN ---
Psychiatric Progress Note - Psychiatric Progress Note Patient seen today, length of contact: PT EVALUATED DISCUSSED WITH TEAM CHART REVIEWED Patient Chief Complaint: the voices are less but still there Problems Identified/Issues Discussed: PT on evaluation continues to be isolative, spending most of the time in his room, dysphoric mood and affect unkempt anhedonic, low energy,, pt indicated that the auditory hallucinations are less intense and denied any command hallucinations. no reported side effects of medications denied any current suicidal or homicidal ideations, partial improvement in appetite and sleep Medical Problems: hyperglycemia, hypercholesteremis DSM 5 Symptoms Update: major depression severe with psychotic features Medication Change: No Medical Record Reviewed: Yes Mental Status Examination - Cognitive Function Orientation: Person, Place Attention: WNL Concentration: Poor Association: WNL Fund of Knowledge: Poor Decription of patient's judgement and insights: FAIR INSIGHT , POOR JUDGEMENT - Mood Mood: Depressed, Anxious - Affect Affect: Constricted, Depressed - Speech Speech: Soft - Formal Thought Process Formal Thought Process: Hallucinations, Delusions, Paranoia, Circumstantial Psychotic Thoughts and Behaviors: PT PRESENTING WITH PARANOID DELUSIONS, DELUSIONS OF PERSECUTION AND NON COMMAND AUDITORY HALLUCINATIONS - Suicidal Ideation Suicidal Ideation: No - Homicidal Ideation Homicidal Ideation: No Goal/Treatment Plan - Goal/Treatment Plan Need for Continued Stay: Severe depression anxiety, Discharge may exacerbated symptoms Progress Toward Problem(s) and Goals/Treatment Plan: continue with risperidone 2mg bid and cogentin 0.5 mg bid continue remeron to 15mg qhs with plan to uptitrate monitor pt for psychopharmacological effects and side effect profile group and supportive therapy Estimated Date of D/C: 11/19/17
[2017-11-15] MEDS: Risperidone M TAB 2 MG PO SCH ×2 (09:55→17:49)
--- NOTE | 2017-11-15 19:46 | PCM.PYCHPN ---
Psychiatric Progress Note - Psychiatric Progress Note Patient seen today, length of contact: PT EVALUATED DISCUSSED WITH TEAM CHART REVIEWED Patient Chief Complaint: was feeling like people were trying to harm him, tried to put him in the back of car Problems Identified/Issues Discussed: alteration in mood alteration in cognition Medical Problems: per chart Diagnostic Results: per psychiatry per medicine per nursing per social work Medication Change: No Medical Record Reviewed: Yes Consults ordered or reviewed: per chart Mental Status Examination - Cognitive Function Orientation: Person, Place Attention: WNL Concentration: Poor Association: WNL Fund of Knowledge: Poor Decription of patient's judgement and insights: impaired - Mood Mood: Depressed, Anxious - Affect Affect: Constricted, Depressed - Speech Speech: Soft - Formal Thought Process Formal Thought Process: Hallucinations, Delusions, Paranoia, Circumstantial - Suicidal Ideation Suicidal Ideation: No - Homicidal Ideation Homicidal Ideation: No Goal/Treatment Plan - Goal/Treatment Plan Need for Continued Stay: Severe depression anxiety, Discharge may exacerbated symptoms Progress Toward Problem(s) and Goals/Treatment Plan: inpt milieu\ adjust meds per status vital signs clinical assessment per status discharge planning in progress Estimated Date of D/C: 11/19/17 - Smoking Cessation Smoking Cessation Initiated: No Reason for not providing: pt defers
[2017-11-15 20:03] LABS: URINE BILIRUBIN NEGATIVE (NEGATIVE); URINE BLOOD SMALL (NEGATIVE); URINE COLOR YELLOW (YELLOW); URINE GLUCOSE (UA) NEG (Normal); URINE KETONE NEGATIVE (NEGATIVE); URINE LEUKOCYTE ESTERASE NEG Leu/uL (Negative); URINE PROTEIN NEGATIVE (NEGATIVE); URINE UROBILINOGEN 0.2-1.0 mg/dL (0.2-1.0); WBC URINE < 1 /hpf (0-5)
[2017-11-15 20:07] LABS: RBC URINE 6 /hpf (0-3)
[2017-11-16] MEDS: Risperidone M TAB 2 MG PO SCH (09:00)
--- NOTE | 2017-11-16 17:19 | PCM.PYCHPN ---
Psychiatric Progress Note - Psychiatric Progress Note Patient seen today, length of contact: PT EVALUATED DISCUSSED WITH TEAM CHART REVIEWED Patient Chief Complaint: was feeling like people were trying to harm him, tried to put him in the back of car, continues to report hearing voices, noted as well in inspector [employer] notes today Problems Identified/Issues Discussed: alteration in mood alteration in cognition Medical Problems: per chart Diagnostic Results: per psychiatry per medicine per nursing per social work DSM 5 Symptoms Update: auditory hallucinations paranoia Medication Change: No Medical Record Reviewed: Yes Consults ordered or reviewed: hospitalist Mental Status Examination - Cognitive Function Orientation: Person, Place Attention: WNL Concentration: Poor Association: WNL Fund of Knowledge: Poor Decription of patient's judgement and insights: impaired - Mood Mood: Depressed, Anxious - Affect Affect: Constricted, Depressed - Speech Speech: Soft - Formal Thought Process Formal Thought Process: Hallucinations, Delusions, Paranoia, Circumstantial Psychotic Thoughts and Behaviors: commentary non command - Homicidal Ideation Homicidal Ideation: No Goal/Treatment Plan - Goal/Treatment Plan Need for Continued Stay: Severe depression anxiety, Discharge may exacerbated symptoms Progress Toward Problem(s) and Goals/Treatment Plan: inpt milieu\ increase risperdal to 2mg po am and 3mg po hs continue cogentin 0.5mg po bid vital signs clinical assessment per status discharge planning in progress Estimated Date of D/C: 11/19/17 - Smoking Cessation Smoking Cessation Initiated: Yes
--- NOTE | 2017-11-17 13:41 | PCM.PYCHPN ---
Psychiatric Progress Note - Psychiatric Progress Note Patient seen today, length of contact: PT EVALUATED DISCUSSED WITH TEAM CHART REVIEWED Patient Chief Complaint: I AM FEELING BETTER Problems Identified/Issues Discussed: PT on evaluation , seen in day room, less isolative , brighter affect and better mood, reported clearing off of the auditory hallucinations, continues to have paranoid delusions in reference to gang members wanting to hurt him, unable to get collateral information in reference to reality off the information denied any current suicidal or homicidal ideations, denied any side effects of medications Medical Problems: hyperglycemia, hypercholesteremis DSM 5 Symptoms Update: major depression severe with psychotic features Medication Change: No Medical Record Reviewed: Yes Mental Status Examination - Cognitive Function Orientation: Person, Place Attention: WNL Concentration: Poor Association: WNL Fund of Knowledge: Poor - Mood Mood: Depressed, Anxious - Affect Affect: Constricted, Depressed - Speech Speech: Soft - Formal Thought Process Formal Thought Process: Delusions, Paranoia, Circumstantial - Suicidal Ideation Suicidal Ideation: No - Homicidal Ideation Homicidal Ideation: No Goal/Treatment Plan - Goal/Treatment Plan Need for Continued Stay: Severe depression anxiety, Discharge may exacerbated symptoms Progress Toward Problem(s) and Goals/Treatment Plan: continue with risperidone 5mg daily and cogentin 0.5 mg bid continue remeron to 15mg qhs with plan to uptitrate monitor pt for psychopharmacological effects and side effect profile group and supportive therapy Estimated Date of D/C: 11/19/17
--- NOTE | 2017-11-18 15:12 | PCM.PYCHPN ---
Psychiatric Progress Note - Psychiatric Progress Note Patient seen today, length of contact: PT EVALUATED DISCUSSED WITH TEAM CHART REVIEWED Patient Chief Complaint: I AM FEELING BETTER Problems Identified/Issues Discussed: PT on evaluation , seen in day room, less isolative , brighter affect and better mood, reported clearing off of the auditory hallucinations, continues to have paranoid delusions in reference to gang members wanting to hurt him, unable to get collateral information in reference to reality off the information denied any current suicidal or homicidal ideations, denied any side effects of medications Medical Problems: hyperglycemia, hypercholesteremis DSM 5 Symptoms Update: major depression severe with psychotic features Medication Change: No Medical Record Reviewed: Yes Mental Status Examination - Cognitive Function Orientation: Person, Place Attention: WNL Concentration: Poor Association: WNL Fund of Knowledge: Poor - Mood Mood: Depressed, Anxious - Affect Affect: Constricted, Depressed - Speech Speech: Soft - Formal Thought Process Formal Thought Process: Delusions, Paranoia, Circumstantial - Suicidal Ideation Suicidal Ideation: No - Homicidal Ideation Homicidal Ideation: No Goal/Treatment Plan - Goal/Treatment Plan Need for Continued Stay: Severe depression anxiety, Discharge may exacerbated symptoms Progress Toward Problem(s) and Goals/Treatment Plan: continue with risperidone 5mg daily and cogentin 0.5 mg bid continue remeron to 15mg qhs with plan to uptitrate monitor pt for psychopharmacological effects and side effect profile group and supportive therapy social insurance adviser arranging for discharge planning Estimated Date of D/C: 11/19/17
[2017-11-19 09:11] VITALS: BP 143/74; PULSE 95; RESP 20; TEMP 96.8
--- NOTE | 2017-11-19 12:19 | PCM.PYCHDC ---
Mental Status Examination - Mental Status Examination Orientation: Person, Place, Situation Memory: Intact Mood: Neutral Affect: Constricted Speech: Appropriate Attention: WNL Concentration: WNL Association: WNL Fund of Knowledge: WNL Formal Thought Process: No Impairment Description of patient's judgement and insight: FAIR INSIGHT , POOR JUDGEMENT Psychotic Thoughts and Behaviors: pt denied any current psychotic symptoms, non elicited Suicidal Ideation: No Current Homicidal Ideation?: No Discharge Summary - Discharge Note Reason for Hospitalization: pt requested help pt is a 52 year old,, Single male who was brought by EMS and Police secondary to sending text messages to his friend stating that he has been hiding in his room for the past 3 months because the (most dangerous gang in [facility]) is "out to get him" since he was "hanging out" with a friend that was making some business transactions where money was involved, and that particular friend did not pay the gang back, thus resulting in his being "threatened" by the gang with the resolution to "kill him" and pt was witnessed to that negative interaction. As per pt's report, he "fears for his life" and he does not want to be found by this gang. Pt however on evaluation denied having any present involvement with the law. 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 Reason for request. 2. Findings. 3. Follow-up Consultations: family practice Summary of Hospital Course include:: 1. Description of specific treatment plan utilized for patients during their course of treatmen. 2. Summarize the time- course for resolution of acute symptoms and/or regressed behaviors. 3. Describe issues identified and worked on during hospitalization. 4. Describe medication utilized. 5. Describe medical problems identified and treated. 6. Reassessment of suicide risk Summary of Hospital Course: pt on admission was started on risperidone and cogentin, they were uptitrated gradually, also on remeron for depression no reported side effects of medications pt was encouraged to attend groups CBT and group and supportive therapy pt on discharge, mental status was stable, denied suicidal or homicidal ideations, denied command hallucinations pt at current mental status not danger to self or others follow up was arranged with outpatient clinic - Diagnosis (1) Major depression with psychotic features Current Visit: Yes Status: Acute - Final Diagnosis (DSM 5) Condition upon Discharge: STABLE DSM 5: major depression recurrent with psychotic features Disposition: HOME/ ROUTINE Follow-up Treatment Plan: continue with risperidone 5mg daily and cogentin 0.5 mg bid continue remeron to 15mg qhs with plan to uptitrate monitor pt for psychopharmacological effects and side effect profile group and supportive therapy social science teacher arranging for discharge planning Prescriptions/Medication Reconciliation: Benztropine [Cogentin] 0.5 mg PO BID 30 Days #60 tab Mirtazapine [Remeron] 15 mg PO HS 30 Days #30 tab risperiDONE [RisperDAL Tab] 2 mg PO DAILY 30 Days #30 tab risperiDONE [RisperDAL Tab] 3 mg PO HS 30 Days #30 tab - Antipsychotic Medications Pt discharged on 2 or more routine antipsychotic medications: No
== END 2017-11-19 14:13 | disposition home or self-care (01) | DRG 430 ==
LOC: H.ER 13:40 → H.ERHOLD 18:33 → H.PSYCH 21:49
PROVIDERS: ADMIT Psychiatry & Neurology Psychiatry; ATTEND Psychiatry & Neurology Psychiatry
PROC: GZHZZZZ Group Psychotherapy (ICD-10-PCS; 2017-11-10)
PROC: 3E0234Z Introduction of Serum, Toxoid and Vaccine into Muscle, Percutaneous Approach (ICD-10-PCS; 2017-11-12)
PROC: GZHZZZZ Group Psychotherapy (ICD-10-PCS; principal; 2017-11-18)
DX: F33.3 Major depressive disorder, recurrent, severe with psychotic symptoms (principal); E78.00 Pure hypercholesterolemia, unspecified; J98.11 Atelectasis; N39.0 Urinary tract infection, site not specified; K59.00 Constipation, unspecified; Z72.0 Tobacco use; Z90.49 Acquired absence of other specified parts of digestive tract; Z56.0 Unemployment, unspecified; R41.82 Altered mental status, unspecified; R73.9 Hyperglycemia, unspecified; Z91.5 Personal history of self-harm; Z23 Encounter for immunization